=== PATIENT | male | born 1985 | race Caucasian/White ===

== ENCOUNTER 2018-10-24 00:42 | Emergency (ER) | payer OTHER ==
[2018-10-24] MEDS ORDERED: SODIUM CHLORIDE 1,000 ML IV STA (03:54)
[2018-10-24] MEDS ORDERED: IBUPROFEN 400 MG TABLET (FP) PO ONE ×2 (03:54→04:15)
[2018-10-24] MEDS ORDERED: chlordiazePOXIDE HCL 25 MG CAPSULE PO ONE (03:55)
--- NOTE | 2018-10-24 03:58 | PDOC ---
History of Present Illness - General Chief Complaint: Alcohol intoxication Stated Complaint: INTOX - History of Present Illness Initial Comments: 10/24/18 03:54 Mr. Villalba is a 32 yo male w/ pmh of alcohol abuse who reports drinking for the last several weeks (between 1 pint and 1 liter of hard alcohol per day, last drink yesterday morning) after 3 years of sobriety. Patient reports he was layed off from work and attributes his increased time as cause. Denies any HI or SI ideations. Was brought to ER by partner. Currently complaining of feeling like he is withdrawing. No other complaints at this time. The patient denies chest pain, shortness of breath, headache and dizziness. Denies fever, chills, nausea, vomit, diarrhea and constipation. Denies dysuria, frequency, urgency and hematuria. Past History - Past Medical History Allergies/Adverse Reactions: Allergies Allergy/AdvReac Type Severity Reaction Status Date / Time No Known Allergies Allergy Verified 10/24/18 04:13 Home Medications: Ambulatory Orders NK [No Known Home Medication] 10/24/18 COPD: No - Immunization History Td Vaccination: Yes TDAP Vaccination: Yes Immunization Up to Date: Yes - Suicide/Smoking/Psychosocial Hx Smoking History: Current every day smoker Number of Cigarettes Smoked Daily: 10 Information on smoking cessation initiated: No Hx Alcohol Use: Yes Drug/Substance Use Hx: No Review of Systems - Review of Systems Comments:: 10/24/18 03:57 GENERAL/CONSTITUTIONAL: +Generalized unwell feeling w/ mild shaking. No fever or chills. HEAD, EYES, EARS, NOSE AND THROAT: No change in vision. No ear pain or discharge. No sore throat. CARDIOVASCULAR: No chest pain or shortness of breath RESPIRATORY: No cough, wheezing, or hemoptysis. GASTROINTESTINAL: No nausea, vomiting, diarrhea or constipation. GENITOURINARY: No dysuria, frequency, or change in urination. MUSCULOSKELETAL: No joint or muscle swelling or pain. No neck or back pain. SKIN: No rash NEUROLOGIC: No headache, vertigo, loss of consciousness, or change in strength/ sensation. ENDOCRINE: No increased thirst. No abnormal weight change HEMATOLOGIC/LYMPHATIC: No anemia, easy bleeding, or history of blood clots. ALLERGIC/IMMUNOLOGIC: No hives or skin allergy. *Physical Exam - Vital Signs Last Vital Signs Temp Pulse Resp BP Pulse Ox 98.5 F 79 20 104/66 95 10/24/18 01:25 10/24/18 01:25 10/24/18 01:25 10/24/18 01:25 10/24/18 01:25 - Physical Exam Comments: 10/24/18 03:58 GENERAL: +Patient tremulous appearing. Awake, alert, and fully oriented, in no acute distress HEAD: No signs of trauma, normocephalic, atraumatic EYES: PERRLA, EOMI, sclera anicteric, conjunctiva clear ENT: Auricles normal inspection, hearing grossly normal, nares patent, oropharynx clear without exudates. Moist mucosa NECK: Normal ROM, supple, no lymphadenopathy, JVD, or masses LUNGS: No distress, speaks full sentences, clear to auscultation bilaterally HEART: Regular rate and rhythm, normal S1 and S2, no murmurs, rubs or gallops, peripheral pulses normal and equal bilaterally. ABDOMEN: Soft, nontender, normoactive bowel sounds. No guarding, no rebound. No masses EXTREMITIES: Normal inspection, Normal range of motion, no edema. No clubbing or cyanosis. NEUROLOGICAL: Cranial nerves II through XII grossly intact. Normal speech, normal gait, no focal sensorimotor deficits SKIN: Warm, Dry, normal turgor, no rashes or lesions noted. ED Treatment Course - LABORATORY CBC & Chemistry Diagram: 10/24/18 04:32 10/24/18 04:32 Medical Decision Making - Medical Decision Making 10/24/18 04:35 Mr. Villalba is a 32 yo male w/ pmh as described who presents requesting detox. Patient will be evaluated with laboratory evaluation and given librium and motrin for symptomatic relief. Plan for detox if found medically stable. 10/24/18 06:16 Patient labs grossly wnl. Patient given librium for withdrawal prophylaxis. EKG normal sinus. No concern for acute process. Patient will be transferred to [facility] for detox. 10/24/18 06:35 Discussed patient w/ [facility] who will admit for detox. Discharging to [facility] facility. Laboratory Results - last 24 hr 10/24/18 10/24/18 04:32 04:32 WBC 6.8 RBC 4.62 Hgb 14.2 Hct 42.9 MCV 93.0 MCH 30.8 MCHC 33.2 RDW 14.5 Plt Count 320 MPV 7.3 L Absolute Neuts (auto) 3.4 Neutrophils % 49.8 Lymphocytes % 41.3 H Monocytes % 7.9 Eosinophils % 0.4 Basophils % 0.6 Nucleated RBC % 0 Sodium 145 Potassium 4.1 Chloride 107 Carbon Dioxide 31 Anion Gap 8 BUN 9.1 Creatinine 0.8 Est GFR (CKD-EPI)AfAm 136.99 Est GFR (CKD-EPI)NonAf 118.20 Random Glucose 79 Calcium 8.7 Total Bilirubin 0.4 AST 23 ALT 28 Alkaline Phosphatase 46 Total Protein 7.1 Albumin 4.0 *DC/Admit/Observation/Transfer Diagnosis at time of Disposition: Alcohol abuse - Discharge Dispostion Disposition: HOME - Referrals - Patient Instructions Printed Discharge Instructions: DI for Alcohol Abuse - Post Discharge Activity
[2018-10-24] MEDS ORDERED: chlordiazePOXIDE HCL 25 MG CAPSULE ONE (04:15)
[2018-10-24] MEDS ORDERED: BACITRACIN 0.9 GM PACKET ONE (04:23)
[2018-10-24 04:39] LABS: BASO % 0.6 % (0-2.0); EOS % 0.4 % (0-4.5); HEMATOCRIT 42.9 % (35.4-49); HEMOGLOBIN 14.2 GM/dL (11.7-16.9); LYMPH % 41.3 % (8-40); MCH 30.8 pg (25.7-33.7); MCHC 33.2 g/dl (32.0-35.9); MEAN PLT VOLUME 7.3 fl (7.5-11.1); MONO % 7.9 % (3.8-10.2); NEUT % 49.8 % (42.8-82.8); PLATELET COUNT 320 K/MM3 (134-434); RBC 4.62 M/mm3 (4.00-5.60); RDW 14.5 % (11.9-15.9); WHITE BLOOD COUNT 6.8 K/mm3 (4.0-10.0)
[2018-10-24 05:08] LABS: BILIRUBIN,TOTAL 0.4 mg/dL (0.2-1); BLOOD UREA NITROGEN 9.1 mg/dL (7-18); CALCIUM 8.7 mg/dL (8.5-10.1); CREATININE 0.8 mg/dL (0.55-1.3); POTASSIUM 4.1 mmol/L (3.5-5.1); TOT PROT 7.1 g/dl (6.4-8.2)
--- NOTE | 2018-10-24 06:05 | PDOC ---
Documentation entered by Tata Dumont SCRIBE, acting as scribe for Bowen Patel MD. Bowen Patel MD: This documentation has been prepared by the leifeTim Adrianna, SCRIBE, under my direction and personally reviewed by me in its entirety. I confirm that the documentation accurately reflects all work, treatment, procedures, and medical decision making performed by me. Attending Attestation - Resident Resident Name: Jim Lopes - ED Attending Attestation I have performed the following: I have examined & evaluated the patient, The case was reviewed & discussed with the resident, I agree w/resident's findings & plan, Exceptions are as noted - HPI HPI: The patient is a 32 year old male, with a significant PMH of EtOH abuse, who presents to the ED for evaluation of EtOH intoxication seeking detox. Patient notes he was 3 years sober, but began drinking again over the past few weeks. He reports drinking between 1 liter to 1 pint of liquor per day. Patient admits to his last drink being yesterday morning. He notes he was recently laid off from work, which he notes is the reason he has returned to EtOh consumption. Patient states he feel like he is withdrawing at this time. Denies any acute complaints at this time. Denies fever, chills, SOB, chest pain, nausea, vomit, diarrhea, dysuria. Allergies: NKA, NKDA Surgical History: None reported Social History: None reported 10/24/18 04:36 - Physicial Exam PE: 10/24/18 05:50 GENERAL: Awake, alert, and fully oriented, in no acute distress HEAD: No signs of trauma EYES: EOMI, sclera anicteric, conjunctiva clear ENT: Auricles normal inspection, hearing grossly normal, nares patent, NECK: Normal ROM, supple, EXTREMITIES: Normal range of motion, no edema. No clubbing or cyanosis. No cords, erythema, or tenderness NEUROLOGICAL: Cranial nerves II through XII grossly intact. Normal speech SKIN: Warm, Dry, normal turgor, no rashes or lesions noted. - Medical Decision Making 10/24/18 05:53 A portion of this note was documented by scribe services under my direction. I have reviewed the details of the note, within reason, and agree with the documentation with the following case summary and management plan written by me. Patient treated in the ED. ment. Nursing notes are reviewed and incorporated into the medical decision-making. Vital signs reviewed. Peripheral IV access obtained by the nurse, laboratory studies are drawn and sent, reviewed and interpreted by myself. Vital Signs Temp Pulse Resp BP Pulse Ox 98.5 F 79 20 104/66 95 10/24/18 01:25 10/24/18 01:25 10/24/18 01:25 10/24/18 01:25 10/24/18 01:25 This is a 32-year-old patient with relapse in alcohol use. Patient is [place] sobering up in requesting for detoxification. Blood work reviewed doctors no acute findings. We'll send the patient back to [address] [place] [address] for detoxification. Heart Score/ECG Review #1 ECG reviewed & interpreted by me at: 04:20 10/24/18 05:52 NSR 81, no std/zenaida, normal axis, normal intervals, QTC 429 msec
[2018-10-24 06:54] VITALS: BP 120/83; PULSE 71; TEMP 98.1
--- NOTE | 2018-10-25 13:17 | EKG ---
Test Reason : Blood Pressure : / mmHG Vent. Rate : 081 BPM Atrial Rate : 081 BPM P-R Int : 132 ms QRS Dur : 102 ms QT Int : 370 ms P-R-T Axes : 076 077 075 degrees QTc Int : 429 ms NORMAL SINUS RHYTHM NORMAL ECG NO PREVIOUS ECGS AVAILABLE Confirmed by MD SUZANNE, JUAN DANIEL ([id number]) on 10/25/2018 1:16:51 PM Referred By: Confirmed By:JUAN DANIEL PALACIOS MD
== END 2018-10-24 06:54 | disposition home or self-care (01) ==
LOC: JER 00:42
PROC: 3E0337Z Introduction of Electrolytic and Water Balance Substance into Peripheral Vein, Percutaneous Approach (ICD-10-PCS; principal; 2018-10-24)
DX: F10.120 Alcohol abuse with intoxication, uncomplicated (principal); Z59.0 Homelessness
CPT/HCPCS: 36415; 80053; 85025; 93005; 93010; 96360; 99284-25; J7030

== ENCOUNTER 2018-10-24 10:45 | Inpatient (IN) | payer OTHER ==
[2018-10-24 11:27] VITALS: BMI 19.8
--- NOTE | 2018-10-24 12:57 | HP ---
CIWA Score Nausea/Vomitin Muscle Tremors: 4-Moderate,w/Arms Extend Anxiety: 4-Mod. Anxious/Guarded Agitation: 1-Slight > Activity Paroxysmal Sweats: 1-Minimal Palms Moist Orientation: 0-Oriented Tacttile Disturbances: 1-Very Mild Itch/Numbness Auditory Disturbances: 0-None Visual Disturbances: 1-Very Mild Sensitivity Headache: 3-Moderate CIWA-Ar Total Score: 18 - Admission Criteria [facility]ASAS Guidelines: Admission for Medically Managed Detox: Requires at least one of the followin. CIWA greater than 12 2. Seizures within the past 24 hours 3. Delirium tremens within the past 24 hours 4. Hallucinations within the past 24 hours 5. Acute intervention needed for co occurring medical disorder 6. Acute intervention needed for co occurring psychiatric disorder 7. Severe withdrawal that cannot be handled at a lower level of care (continued vomiting, continued diarrhea, abnormal vital signs) requiring intravenous medication and/or fluids 8. Patient presents the following: CIWA greater than 12 Admission Criteria Met: Admission criteria met Admission ROS S - [facility] Chief Complaint: I know I can be sober and happy - I need to get back to [facility] and start over Allergies/Adverse Reactions: Allergies Allergy/AdvReac Type Severity Reaction Status Date / Time No Known Allergies Allergy Verified 10/24/18 11:19 History of Present Illness: 32 yo gentleman here for detox from alcohol. Patient with long history of alcohol dependence and alcohol related seizures. First time here but was previously in [facility]. He states he lost his job and also his partner left him - he resumed drinking. He was previously in [facility] several years ago - longest times sober was three years. Wants to go back [facility] after detox. Patient was in [facility] ED yesterday and given librium (urine tox + bzo) and then sent here for detox. Exam Limitations: No Limitations - Ebola screening Have you traveled outside of the country in the last 21 days: No (N) Have you had contact with anyone from an Ebola affected area: No Do you have a fever: No - Review of Systems Constitutional: Loss of Appetite, Malaise, Changes in sleep, Weakness, Unintentional Wgt. Loss EENT: reports: No Symptoms Reported Respiratory: reports: No Symptoms reported Cardiac: reports: No Symptoms Reported GI: reports: Nausea, Poor Appetite, Poor Fluid Intake, Abdominal cramping : reports: Frequency Musculoskeletal: reports: No Symptoms Reported Integumentary: reports: Dryness Neuro: reports: Headache, Paresthesia, Tremors, Weakness Endocrine: reports: No Symptoms Reported Hematology: reports: No Symptoms Reported Psychiatric: reports: Judgement Intact, Mood/Affect Appropiate, Orientated x3, Anxious Other Systems: Reviewed and Negative Patient History - Patient Medical History Hx Asthma: No Hx Chronic Obstructive Pulmonary Disease (COPD): No Hx Cancer: No Hx Cardiac Disorders: No Hx Congestive Heart Failure: No Hx Hypertension: No Hx Hypercholesterolemia: No Hx Pacemaker: No HX Cerebrovascular Accident: No Hx Seizures: Yes (years ago - alcohol related) Hx Diabetes: No Hx Gastrointestinal Disorders: No Hx Liver Disease: No Hx Genitourinary Disorders: No Hx Sexually Transmitted Disorders: No Hx Renal Disease (ESRD): No Hx Thyroid Disease: No Hx Human Immunodeficiency Virus (HIV): No Hx Hepatitis C: No Hx Depression: Yes (anxiety - [facility] psych years ago) Hx Suicide Attempt: No Hx Bipolar Disorder: No Hx Schizophrenia: No - Patient Surgical History Past Surgical History: No - PPD History Previous Implant?: Yes Documented Results: Negative w/o proof Implanted On Prior [facility] Admission?: No PPD to be Administered?: No - Reproductive History Patient is a Female of Child Bearing Age (11 -55 yrs old): No - Smoking Cessation Smoking history: Current every day smoker Aproximately how many cigarettes per day: 20 Hx Chewing Tobacco Use: No Initiated information on smoking cessation: Yes 'Breaking Loose' booklet given: 10/24/18 (give on floor) - Substance & Tx. History Hx Alcohol Use: Yes Hx Substance Use: Yes Substance Use Type: Alcohol, Marijuana Hx Substance Use Treatment: Yes (detox, [facility], [facility]) - Substances abused Alcohol Substance route: Oral Frequency: Daily Amount used: 2 pints vodka Age of first use: 15 Date of last use: 10/23/18 Marijuana/Hashish Substance route: Smoking Frequency: 1-2 times per week Amount used: 1 joint Age of first use: 15 Date of last use: 10/19/18 Family Disease History - Family Disease History Family Disease History: CA: Mother (, breast cancer), Other: Father ( , etoh (suicide)), Mother, Sister (twin sister - healthy, etoh and pot) Admission Physical Exam [facility] - Vital Signs Vital Signs: Vital Signs - 24 hr 10/24/18 10/24/18 11:19 12:32 Temperature 99.3 F 99.3 F Pulse Rate 85 85 Respiratory 18 18 Rate Blood Pressure 129/86 129/86 - Physical General Appearance: Yes: Nourished, Appropriately Dressed, Moderate Distress, Thin, Tremorous, Anxious HEENTM: Yes: EOMI, Hearing grossly Normal, Normocephalic, Normal Voice, Pharynx Normal Respiratory: Yes: Normal Breath Sounds, No Respiratory Distress Neck: Yes: No masses,lesions,Nodules, Supple Breast: Yes: Breast Exam Deferred Cardiology: Yes: Regular Rhythm, Regular Rate Abdominal: Yes: Flat, Soft Genitourinary: Yes: Frequency Back: Yes: Normal Inspection Musculoskeletal: Yes: full range of Motion, Gait Steady Extremities: Yes: Normal Inspection, Non-Tender, Tremors Neurological: Yes: Fully Oriented, Alert, Normal Mood/Affect, Normal Response, Numbness Integumentary: Yes: Normal Color, Dry, Warm Lymphatic: Yes: Within Normal Limits - Diagnostic (1) Alcohol dependence with uncomplicated withdrawal Current Visit: Yes Status: Chronic (2) Nicotine dependence Current Visit: Yes Status: Chronic Qualifiers: Nicotine product type: cigarettes Substance use status: uncomplicated Qualified Code(s): F17.210 - Nicotine dependence, cigarettes, uncomplicated (3) History of seizure Current Visit: Yes Status: Chronic Cleared for Admission [facility] - Detox or Rehab [facility] Level of Care: Medically Managed Detox Regimen/Protocol: Librium Breathalyzer - Breathalyzer Breathalyzer: 0.104 Urine Drug Screen - Test Device Lot number: [id number] Expiration date: 08/19/19 - Control Is test valid?: Yes - Results Drug screen NEGATIVE: No Urine drug screen results: THC-Marijuana, BZO-Benzodiazepines Inpatient Rehab Admission - Rehab Decision to Admit Inpatient rehab admission?: No
[2018-10-24] MEDS ORDERED: chlordiazePOXIDE HCL 25 MG CAPSULE PO PRN (13:06)
[2018-10-24] MEDS ORDERED: MENTHOL/PHENOL 1 EACH UD MM PRN (13:06)
[2018-10-24] MEDS ORDERED: MELATONIN 5 MG TABLETS PO PRN (13:06)
[2018-10-24] MEDS ORDERED: BISMUTH SUBSALICYLATE 524 MG/30 ML UD PO PRN (13:06)
[2018-10-24] MEDS ORDERED: ACETAMINOPHEN 325 MG TABLET (FP) PO PRN ×2 (13:06)
[2018-10-24] MEDS ORDERED: MAG HYDROX/AL HYDROX/SIMETH 30 ML UNIT-DOSE CUP PO PRN (13:06)
[2018-10-24] MEDS ORDERED: IBUPROFEN 400 MG TABLET (FP) PO PRN (13:06)
[2018-10-24] MEDS ORDERED: MAGNESIUM HYDROX 2400MG/30ML ORAL SUSPENSION 30 ML CUP PO PRN (13:06)
[2018-10-24] MEDS ORDERED: MAGNESIUM CITRATE 300 ML BOTTLE PO PRN (13:06)
[2018-10-24] MEDS ORDERED: METHOCARBAMOL 500 MG TABLET PO PRN (13:06)
[2018-10-24] MEDS ORDERED: chlordiazePOXIDE HCL 25 MG CAPSULE PO ONE (14:00)
[2018-10-24] MEDS: GABAPENTIN 300 MG CAPSULE (FP) PO SCH ×2 (14:38→23:05)
[2018-10-24] MEDS: NICOTINE 21 MG/24 HOURS TOPICAL PATCH TD SCH (14:38)
[2018-10-24] MEDS: NICOTINE POLACRILEX 4 MG GUM BUC PRN ×3 (14:40→23:07)
[2018-10-24] MEDS: chlordiazePOXIDE HCL 25 MG CAPSULE PO SCH ×2 (18:06→23:05)
[2018-10-24] MEDS: hydrOXYzine HCL 25 MG TABLET (FP) PO PRN (18:06)
[2018-10-24] MEDS ORDERED: THIAMINE HCL 100 MG TABLET (FP) PO SCH (22:00)
[2018-10-25] MEDS ORDERED: GABAPENTIN 300 MG CAPSULE (FP) PO SCH (06:00)
[2018-10-25] MEDS: chlordiazePOXIDE HCL 25 MG CAPSULE PO SCH ×2 (06:23→10:24)
[2018-10-25] MEDS: hydrOXYzine HCL 25 MG TABLET (FP) PO PRN (06:25)
[2018-10-25 09:32] VITALS: BP 141/95; PULSE 92; TEMP 97.9
--- NOTE | 2018-10-25 09:38 | PN ---
S CIWA - CIWA Score Nausea/Vomitin-Mild Nausea/No Vomiting Muscle Tremors: 3 Anxiety: 2 Agitation: 3 Paroxysmal Sweats: 1-Minimal Palms Moist Orientation: 1-Uncertain about Date Tacttile Disturbances: 0-None Auditory Disturbances: 0-None Visual Disturbances: 0-None Headache: 2-Mild CIWA-Ar Total Score: 13 [facility] Progress Note (SOAP) Subjective: doing well with librium detox protocol ambulating on hallway tremor restlessness Objective: 10/25/18 09:38 Vital Signs Temperature 97.9 F 10/25/18 09:31 Pulse Rate 92 H 10/25/18 09:31 Respiratory Rate 18 10/25/18 09:31 Blood Pressure 141/95 10/25/18 09:31 O2 Sat by Pulse Oximetry (%) lab pending Assessment: 10/25/18 09:38 alcohol withdrawal sx Plan: continue alcohol detox
[2018-10-25] MEDS ORDERED: PRENATAL VITAMINS W/ FOLIC ACID TABLET (FP) PO SCH (10:00)
[2018-10-25] MEDS: NICOTINE 21 MG/24 HOURS TOPICAL PATCH TD SCH (10:23)
[2018-10-25] MEDS: NICOTINE POLACRILEX 4 MG GUM BUC PRN (10:26)
[2018-10-25 10:56] LABS: ALBUMIN 3.7 g/dl (3.4-5.0); BLOOD UREA NITROGEN 8.2 mg/dL (7-18); CALCIUM 9.4 mg/dL (8.5-10.1); CREATININE 0.7 mg/dL (0.55-1.3); POTASSIUM 3.5 mmol/L (3.5-5.1); TOT PROT 6.2 g/dl (6.4-8.2)
--- NOTE | 2018-10-25 11:05 | CONSULT ---
[facility] Psychiatric Consult - Data Date of interview: 10/25/18 Admission source: [facility] Identifying data: As per nursing staff patient signed out against medical advice.
[2018-10-25 11:09] LABS: RBC 4.34 M/mm3 (4.00-5.60)
[2018-10-25 11:50] LABS: HEMATOCRIT 40.1 % (35.4-49); HEMOGLOBIN 13.4 GM/dL (11.7-16.9); MCH 30.9 pg (25.7-33.7); MCHC 33.5 g/dl (32.0-35.9); MEAN CELL VOLUME 92.4 fl (80-96); MEAN PLT VOLUME 8.2 fl (7.5-11.1); RDW 14.4 % (11.9-15.9); WHITE BLOOD COUNT 6.4 K/mm3 (4.0-10.0)
[2018-10-25 11:54] LABS: PLATELET COUNT 298 K/MM3 (134-434)
--- NOTE | 2018-10-25 14:00 | EKG ---
Test Reason : Blood Pressure : / mmHG Vent. Rate : 089 BPM Atrial Rate : 089 BPM P-R Int : 126 ms QRS Dur : 100 ms QT Int : 364 ms P-R-T Axes : 075 073 077 degrees QTc Int : 442 ms NORMAL SINUS RHYTHM WITH SINUS ARRHYTHMIA VOLTAGE CRITERIA FOR LEFT VENTRICULAR HYPERTROPHY ABNORMAL ECG WHEN COMPARED WITH ECG OF 24-OCT-2018 04:17, NO SIGNIFICANT CHANGE WAS FOUND Confirmed by MD SUZANNE, JUAN DANIEL ([id number]) on 10/25/2018 2:00:28 PM Referred By: Confirmed By:JUAN DANIEL PALACIOS MD
--- NOTE | 2018-10-25 15:55 | DS ---
[facility] Detox Discharge Summary Admission Date: 10/24/18 Discharge Date: 10/25/18 - History Present History: Alcohol Dependence Additional Comments: 32 years old male admitted on 10/24/18 for alcohol withdrawal stabilization alert denies suicidal ideation no acute distress patient prefers to go to [facility] for rehab "I was there one years, I was doing well" speech clearly steady gait patient insists to and has confident of begin alcohol rehab - Physical Exam Results Vital Signs: Vital Signs Temperature 97.9 F 10/25/18 09:31 Pulse Rate 92 H 10/25/18 09:31 Respiratory Rate 18 10/25/18 09:31 Blood Pressure 141/95 10/25/18 09:31 O2 Sat by Pulse Oximetry (%) Pertinent Admission Physical Exam Findings: Laboratory Last Values WBC 6.4 K/mm3 (4.0-10.0) 10/25/18 07:42 RBC 4.34 M/mm3 (4.00-5.60) 10/25/18 07:42 Hgb 13.4 GM/dL (11.7-16.9) 10/25/18 07:42 Hct 40.1 % (35.4-49) 10/25/18 07:42 MCV 92.4 fl (80-96) 10/25/18 07:42 MCH 30.9 pg (25.7-33.7) 10/25/18 07:42 MCHC 33.5 g/dl (32.0-35.9) 10/25/18 07:42 RDW 14.4 % (11.9-15.9) 10/25/18 07:42 Plt Count 298 K/MM3 (134-434) 10/25/18 07:42 MPV 8.2 fl (7.5-11.1) D 10/25/18 07:42 Sodium 141 mmol/L (136-145) 10/25/18 07:42 Potassium 3.5 mmol/L (3.5-5.1) 10/25/18 07:42 Chloride 102 mmol/L (98-107) 10/25/18 07:42 Carbon Dioxide 34 mmol/L (21-32) H 10/25/18 07:42 Anion Gap 5 MMOL/L (8-16) L 10/25/18 07:42 BUN 8.2 mg/dL (7-18) 10/25/18 07:42 Creatinine 0.7 mg/dL (0.55-1.3) 10/25/18 07:42 Est GFR (CKD-EPI)AfAm 144.72 10/25/18 07:42 Est GFR (CKD-EPI)NonAf 124.87 10/25/18 07:42 Random Glucose 91 mg/dL (74-106) 10/25/18 07:42 Calcium 9.4 mg/dL (8.5-10.1) 10/25/18 07:42 Total Bilirubin 1.0 mg/dL (0.2-1) 10/25/18 07:42 AST 22 U/L (15-37) 10/25/18 07:42 ALT 27 U/L (13-61) 10/25/18 07:42 Alkaline Phosphatase 43 U/L (45-117) L 10/25/18 07:42 Total Protein 6.2 g/dl (6.4-8.2) L 10/25/18 07:42 Albumin 3.7 g/dl (3.4-5.0) 10/25/18 07:42 RPR Titer Nonreactive (NONREACTIVE) 10/25/18 07:42 lab noted - Treatment Hospital Course: Detox Protocol Followed, Responded well Patient has Accepted a Rehab Referral to: community support approach - Medication Discharge Medications: Ambulatory Orders Gabapentin [Neurontin -] 300 mg PO Q8H 10/24/18 - Diagnosis (1) Alcohol dependence with uncomplicated withdrawal Status: Acute (2) Nicotine dependence Status: Acute Qualifiers: Nicotine product type: cigarettes Substance use status: in withdrawal Qualified Code(s): F17.213 - Nicotine dependence, cigarettes, with withdrawal - AMA Did Patient Leave Against Medical Advice: Yes
[2018-10-26] MEDS ORDERED: chlordiazePOXIDE HCL 25 MG CAPSULE PO SCH (05:00)
[2018-10-27] MEDS ORDERED: chlordiazePOXIDE HCL 10 MG CAPSULE PO PRN
[2018-10-27] MEDS ORDERED: chlordiazePOXIDE HCL 10 MG CAPSULE PO SCH (05:00)
[2018-10-28] MEDS ORDERED: chlordiazePOXIDE HCL 10 MG CAPSULE PO SCH (05:00)
[2018-10-29] MEDS ORDERED: chlordiazePOXIDE HCL 10 MG CAPSULE PO ONE (05:00)
== END 2018-10-25 11:04 | disposition left against medical advice (07) | DRG 770 ==
LOC: YASAS 10:45 → Y3N 13:29
PROVIDERS: ADMIT Surgery; ATTEND Surgery
PROC: HZ2ZZZZ Detoxification Services for Substance Abuse Treatment (ICD-10-PCS; principal; 2018-10-24)
DX: F12.10 Cannabis abuse, uncomplicated (principal); F17.213 Nicotine dependence, cigarettes, with withdrawal; F41.8 Other specified anxiety disorders; F32.9 Major depressive disorder, single episode, unspecified; Z86.69 Personal history of other diseases of the nervous system and sense organs; Z59.0 Homelessness
CPT/HCPCS: 36415; 80053; 85027; 86480; 86593; 93005; 93010